=== PATIENT | female | born 1975 | race Caucasian/White ===

== ENCOUNTER 2020-06-23 08:03 | Outpatient (CLI) | payer BC ==
[2020-06-23] VITALS (7 sets, daily range): BP systolic 97–106; BP diastolic 50–71; PULSE 98–113
[~2020-06-23] VITALS: Ht 162.6 cm; Wt 54.8 kg
[~2020-06-23 08:03] MED LIST: ALERTNESS AID200 MG PO; BACTRIM DS 8001 TAB PO; CLARITIN 1010 MG/TAB PO; DIFLUCAN200 MG PO; FLEXERIL 1010 MG/TAB PO; LEVAQUIN 750MG750 M1 PO; PREMARIN 0.60.625 M1 PO; SPRYCEL70 MG PO; ULTRAM 50MG TAB50 MG PO; ZOFRAN8 MG PO; ZOVIRAX800 MG PO
--- NOTE | 2020-06-23 09:36 | NUR ---
Pt seen only briefly before procedure, chemotherapy precautions and medication information given to as pt is nauseated and not feeling well. Mariluz Melendez Rn reports that pt has had this procedure and medication several times before at different locations and is knowledgable. Reviewed instructions for precautions with and printed information was provided. Cytaribine picked up from pharmacy and verified correct by comparing printed label with printed order with Mariluz Melendez RN. After spinal fluid obtained during spinal tap, Dr Morales injected cytarbine 100mg as per order. Chemotherapy precautions were followed during this procedure.
--- NOTE | 2020-06-23 11:10 | NUR ---
Discharge instructions given to pt.pt verbalizes understanding.Pt escorted out via wheelchair.
[2020-06-23 11:28] LABS: CSF APPEARANCE CLEAR; CSF COLOR COLORLESS; CSF MONONUCLEAR 0 % (70-100); CSF POLYMORPHONUCLEAR 100 % (0-6); CSF RBC 89 /mm3 (0-0)
== END 2020-06-23 11:38 | disposition home or self-care (01) ==
LOC: COL.RAD
PROVIDERS: Internal Medicine
DX: C91.00 Acute lymphoblastic leukemia not having achieved remission (principal)
CPT/HCPCS: J9100